=== PATIENT | female | born 1985 | race Caucasian/White ===

== ENCOUNTER → 2016-10-04 | Emergency (ER) | payer MEDICAID ==
[~2016-10-04] VITALS: Ht 170.2 cm; Wt 53.1 kg
[~2016-10-04] MED LIST: BACITRACIN-P28.35 GM TP; IBUPROFEN600 MG ORAL; NKM; TRAMADOL HCL50 MG ORAL; TRAZODONE HCL150 MG ORAL
[2016-10-04 22:47] VITALS: BP 101/71
[2016-10-04 23:46] VITALS: BP_SYST 101; BP_SYST 110; BP_DIAS 71; BP_DIAS 74
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
--- NOTE | 2016-10-05 11:17 | Diagnostic Imaging Report ---
Indication: Pain Findings: 3 views of the right shoulder were obtained. No acute fractures, malalignment, erosions or periostitis are identified. Bone mineralization is within normal limits. Soft tissues are unremarkable. Impression: Negative examination of the shoulder.
== END | disposition home or self-care (01) ==
LOC: EMR 22:50
DX: M25.511 Pain in right shoulder (principal); G89.29 Other chronic pain
CPT/HCPCS: 99283

== ENCOUNTER 2016-11-02 00:29 | Emergency (ER) | payer MEDICAID ==
[~2016-11-02] VITALS: Ht 170.2 cm; Wt 54.4 kg
[~2016-11-02 00:29] MED LIST changes: -BACITRACIN-P28.35 GM TP; -IBUPROFEN600 MG ORAL; -TRAZODONE HCL150 MG ORAL
[2016-11-02] MEDS ORDERED: TRAZODONE HCL150 MG ORAL (00:42)
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
[2016-11-02 01:22] LABS: APPEARANCE,URINE CLEAR; KETONES,URINE NEGATIVE (NEGATIVE); LEUKOCYTE ESTERASE ,URINE NEGATIVE (NEGATIVE); NITRITE,URINE NEGATIVE (NEGATIVE); PH,URINE 6 (4.5-8.0); PROTEIN,URINE NEGATIVE (NEGATIVE); UROBILINOGEN,URINE NORMAL MG/DL (0.0-1.0)
[2016-11-02 02:02] VITALS: BP 99/66
[2016-11-02] MEDS ORDERED: IBUPROFEN600 MG ORAL (02:15)
[2016-11-02] MEDS ORDERED: TRAMADOL HCL50 MG ORAL (02:15)
[2016-11-02 02:24] VITALS: BP 99/66
--- NOTE | 2016-11-02 10:07 | Diagnostic Imaging Report ---
History: Pain, no trauma. Technique: A single frontal view of the pelvis is provided Comparison: No prior study is available for comparison. Findings: Overall bony mineralization is within normal limits. No fracture is seen in the pelvis or visualized femurs. The pubic symphysis is within normal limits. Impression: No evidence of acute bony injury.
== END 2016-11-02 02:25 | disposition home or self-care (01) ==
LOC: EMR 00:55
DX: M79.604 Pain in right leg (principal); F41.9 Anxiety disorder, unspecified; F32.9 Major depressive disorder, single episode, unspecified; F17.200 Nicotine dependence, unspecified, uncomplicated
CPT/HCPCS: 72170; 81003; 81025; 99284

== ENCOUNTER 2016-12-23 19:35 | Emergency (ER) | payer MEDICAID ==
[~2016-12-23] VITALS: Ht 170.2 cm; Wt 53.1 kg
[~2016-12-23 19:35] MED LIST changes: +IBUPROFEN600 MG ORAL; +TRAZODONE HCL150 MG ORAL
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
[2016-12-23] MEDS ORDERED: BACITRACIN-P28.35 GM TP (20:29)
[2016-12-23 20:39] VITALS: BP 109/75
[2016-12-23 20:41] LABS: BASOPHILS % (AUTO) 0.9 % (0.0-2.0); LYMPHOCYTES % (AUTO) 28.7 % (20.0-45.0); MEAN CORPUSCULAR HEMOGLOBIN 32.1 PG (27.0-31.0); MEAN CORPUSCULAR HGB CONC 34.5 G/DL (32.0-36.0); MEAN CORPUSCULAR VOLUME 93 FL (80-99); MEAN PLATELET VOLUME 6.4 FL (6.5-10.1); MONOCYTES % (AUTO) 5.9 % (1.0-10.0); NEUTROPHILS % (AUTO) 63.5 % (45.0-75.0); PLATELET COUNT 251 K/UL (150-450); RED BLOOD COUNT 4.01 M/UL (4.20-5.40); RED CELL DISTRIBUTION WIDTH 11.2 % (11.6-14.8); WHITE BLOOD COUNT 8.3 K/UL (4.8-10.8)
[2016-12-23 21:03] LABS: ACETAMINOPHEN < 10 ug/mL (10-30); ALANINE AMINOTRANSFERASE 9 U/L (3-33); ALBUMIN/GLOBULIN RATIO 1.6 (1.0-2.7); ALCOHOL < 10 mg/dL; ANION GAP 17 (5-15); ASPARTATE AMINO TRANSFERASE 17 U/L (5-40); CALCIUM 8.7 mg/dL (8.6-10.2); CARBON DIOXIDE 23 mEQ/L (20-30); CHLORIDE 98 mEQ/L (98-107); CREATININE 0.8 mg/dL (0.5-0.9); GLOMERULAR FILTRATION RATE > 60 mL/min (>60); HEMOLYSIS 12; POTASSIUM 3.6 mEQ/L (3.4-4.9); SODIUM 138 mEQ/L (135-145)
== END 2016-12-23 20:48 | disposition home or self-care (01) ==
LOC: EDBD 19:35 → EMR 20:03
DX: F41.9 Anxiety disorder, unspecified (principal); F15.10 Other stimulant abuse, uncomplicated; F32.9 Major depressive disorder, single episode, unspecified; R00.0 Tachycardia, unspecified
CPT/HCPCS: 36415; 80053; 80300; 80329; 85025; 99283